=== PATIENT | male | born 1995 | race Caucasian/White ===

== ENCOUNTER 2018-12-04 15:36 | Emergency (ER) | payer OTHER ==
[~2018-12-04] VITALS: Ht 172.7 cm; Wt 72.7 kg
[2018-12-04 15:39] VITALS: BP 139/91; TEMP 98.2
[2018-12-04 17:40] VITALS: PULSE 84
== END 2018-12-04 17:38 | disposition home or self-care (01) ==
LOC: COL.ER 15:36
DX: R51 Headache (principal)
CPT/HCPCS: J1200; J1885; J2765; J7030